=== PATIENT | female | born 1980 | race Caucasian/White ===

== ENCOUNTER 2021-10-13 14:00 | Inpatient (IN) | payer SELFPAY ==
[~2021-10-13] VITALS: Ht 149.9 cm; Wt 85.1 kg
--- NOTE | 2021-10-13 14:46 | RAD ---
CT HEAD AND C-SPINE WO, CT MAXILLOFACIAL WITHOUT CONTRAST dated 10/13/2021 2:04 PM Indication:Reason: syncope, fall / Spl. Instructions: / History: Comparison: No comparison is available. Technique: Helical noncontrast images were performed. Sagittal and coronal reconstructions were obtai arnav. One or more of the following individualized dose reduction techniques were utilized for this examinat ion: 1. Automated exposure control 2. Adjustment of the mA and/or kV according to patient size 3. Use of iterative reconstruction technique Findings: CT head: There is no apparent intracranial hemorrhage or abnormal extra-axial fluid collection. There seems to be greater than usual amount of low attenuation in the cerebral white matter for the patien t's age. This is nonspecific, but can be seen with chronic small vessel schema injury or hypertension . No other area of abnormal density is seen. The ventricles and basilar cisterns are normally positio arnav. Bone windows show no apparent fracture of the skull or abnormal mastoid opacification. CT FACIAL BONES: There is suggestion of a fracture involving the nasal bone near the tip and left meghna al arch. No other fracture is seen. The orbital floors appear intact. Nasal septum is deviated somewh at to the left. No fluid is seen in sinuses. There is some mucosal thickening in the ethmoid sinuses and left maxillary sinus. Periapical lucencies are seen in the axilla. The right zygoma was not entir rosey included on the study. It appeared normal on the head CT. CT cervical spine: Alignment is normal. There is no apparent loss of vertebral body height or prevert ebral soft tissue swelling. No fracture line is seen. Intervertebral disks are fairly well maintained . There is no apparent destructive process. Evaluation of the soft tissue components of the canal is limited without intrathecal contrast. 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 IMPRESSION: CT head: No acute abnormality is seen. There may be some underlying white matter disease. CT FACIAL BONES: Nasal fracture. No other apparent fracture. CT cervical spine: No acute abnormality. Electronically signed by: Darrick Luu Jr., MD (10/13/2021 2:44 PM) [id number]
--- NOTE | 2021-10-13 14:56 | PHYS DOC ---
Past History Past Medical History: CHF, Diabetes, Hypertension (ARMIDA FRAGOSO COMMUNITY AFFAIRS MANAGER) Adult General Chief Complaint Chief Complaint: SYNCOPE HPI HPI Patient is a 41-year-old female patient with history of diabetes type 2, hypertension, CHF, who presents to the ED today to be evaluated after having a syncope episode. Patient states she was walking to her bedroom when she fell face forward. Patient states she had loss of consciousness for unknown period of time though the mother was home who called 911 right away. She states she does not have any pain right now. (ARMIDA FRAGOSO COMMUNITY AFFAIRS MANAGER) Review of Systems Review of Systems Constitutional: Denies fever or chills [] Eyes: Denies change in visual acuity, redness, or eye pain [] HENT: Denies nasal congestion or sore throat [] Respiratory: Denies cough or shortness of breath [] Cardiovascular: No additional information not addressed in HPI [] GI: Denies abdominal pain, nausea, vomiting, bloody stools or diarrhea [] : Denies dysuria or hematuria [] Musculoskeletal: Denies back pain or joint pain [] Integument: Denies rash or skin lesions [] Neurologic: Reports syncope episode. Denies headache, focal weakness or sensory changes [] All other systems were reviewed and found to be within normal limits, except as documented in this note. (ARMIDA FRAGOSO COMMUNITY AFFAIRS MANAGER) Allergies Allergies Allergies Coded Allergies Type Severity Reaction Last Updated Verified No Known Drug Allergies 10/13/21 No (ARMIDA FRAGOSO APRN) Physical Exam Physical Exam Constitutional: Well developed, well nourished, no acute distress, non-toxic appearance. [] HENT: Normocephalic, bilateral external ears normal, oropharynx moist, no oral exudates, bilateral nasal cavities with dried blood. No active bleeding Eyes: PERRLA, EOMI, conjunctiva normal, no discharge. [] Neck: Patient is in a c-collar trying to remove the C collar on arrival. Normal range of motion, no tenderness, supple, no stridor. [] Cardiovascular:Heart rate regular rhythm, no murmur [] Lungs & Thorax: Bilateral breath sounds clear to auscultation [] Abdomen: Bowel sounds normal, soft, no tenderness, no masses, no pulsatile masses. [] Skin: Warm, dry, no erythema, no rash. [] Back: No tenderness, no CVA tenderness. [] Extremities: No tenderness, no cyanosis, no clubbing, ROM intact, +1 edema to bilateral lower extremities Neurologic: lethargic but able to wake up and answer orientation questions oriented X 3, normal motor function, normal sensory function, no focal deficits noted. Cranial nerves II through XII intact Psychologic: flat affect (ARMIDA FRAGOSO COMMUNITY AFFAIRS MANAGER) EKG EKG [address] Gonzales sinus rhythm HR 76 no STEMI[] (ARMIDA FRAGOSO COMMUNITY AFFAIRS MANAGER) Radiology/Procedures Radiology/Procedures []PROCEDURE: PORTABLE CHEST 1V XR CHEST 1V Clinical Indication: Reason: syncope, fall / Spl. Instructions: / History: Comparison: None. Findings: There is cardiomegaly. There is faint opacity that projects over the peripheral right midlung. Lungs are otherwise clear. There is no pneumothorax. No layering pleural effusion is appreciated. No acute bone abnormality. IMPRESSION: 1. Cardiomegaly. 2. Faint opacity of the peripheral right midlung. Finding could be airspace disease or fluid tracking along the fissure or could be due to overlying soft tissues. Electronically signed by: Thiago Arrieta MD (10/13/2021 3:32 PM) [id number] DICTATED AND SIGNED BY: THIAGO ARRIETA MD DATE: 10/13/21 1516 CC: EMERGENCY,DEPARTMENT; ARMIDA FRAGOSO ADRIANO; NON,STAFF ~MTH0 0 PROCEDURE: CT MAXILLOFACIAL WO CONTRAST CT HEAD AND C-SPINE WO, CT MAXILLOFACIAL WITHOUT CONTRAST dated 10/13/2021 2:04 PM Indication:Reason: syncope, fall / Spl. Instructions: / History: Comparison: No comparison is available. Technique: Helical noncontrast images were performed. Sagittal and coronal reconstructions were obtained. One or more of the following individualized dose reduction techniques were utilized for this examination: 1. Automated exposure control 2. Adjustment of the mA and/or kV according to patient size 3. Use of iterative reconstruction technique Findings: CT head: There is no apparent intracranial hemorrhage or abnormal extra-axial fluid collection. There seems to be greater than usual amount of low attenuation in the cerebral white matter for the patient's age. This is nonspecific, but can be seen with chronic small vessel schema injury or hypertension. No other area of abnormal density is seen. The ventricles and basilar cisterns are normally positioned. Bone windows show no apparent fracture of the skull or abnormal mastoid opacification. CT FACIAL BONES: There is suggestion of a fracture involving the nasal bone near the tip and left nasal arch. No other fracture is seen. The orbital floors appear intact. Nasal septum is deviated somewhat to the left. No fluid is seen in sinuses. There is some mucosal thickening in the ethmoid sinuses and left maxillary sinus. Periapical lucencies are seen in the axilla. The right zygoma was not entirely included on the study. It appeared normal on the head CT. CT cervical spine: Alignment is normal. There is no apparent loss of vertebral body height or prevertebral soft tissue swelling. No fracture line is seen. Intervertebral disks are fairly well maintained. There is no apparent destructive process. Evaluation of the soft tissue components of the canal is limited without intrathecal contrast. 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 IMPRESSION: CT head: No acute abnormality is seen. There may be some underlying white matter disease. CT FACIAL BONES: Nasal fracture. No other apparent fracture. CT cervical spine: No acute abnormality. Electronically signed by: Kristen Luu Jr., MD (10/13/2021 2:44 PM) [id number] DICTATED AND SIGNED BY: KRISTEN LUU Jr, MD DATE: 10/13/21 143 CC: EMERGENCY,DEPARTMENT; ARMIDA FRAGOSO APRN; NON,STAFF ~MTH0 0 (ARMIDA FRAGOSO APRN) Heart Score C/O Chest Pain: N/A Risk Factors: Risk Factors: DM, Current or recent (<one month) smoker, HTN, HLP, family history of CAD, obesity. Risk Scores: Risk Factors: DM, Current or recent (<one month) smoker, HTN, HLP, family history of CAD, obesity. (ARMIDA FRAGOSO APRN) Course & Med Decision Making Course & Med Decision Making Pertinent Labs and Imaging studies reviewed. (See chart for details) This is a 41-year-old female patient presented to the ED today to be evaluated after having a syncope episode and falling. She reports loss of consciousness. Vitals on arrival to the ED temperature 98.2, blood pressure 119/87, O2 sats 93% on room air. Respirations 16. CBC with a normal WBC, CMP with glucose of 149, anion gap is normal, CO2 is normal. Creatinine 1.3, BUN is normal. Troponin 61, patient has no chest pain, EKG is negative. BNP 4146 CT of the head is negative, CT of maxillofacial noted for nasal bone fracture. CT of the neck is negative. UDS positive for methamphetamine At some point during the stay patient was demanding to leave the ED AGAINST MEDICAL ADVICE. She is alert oriented x4 able to make her own decisions. She signed out her AMA paperwork, was walking out of the ED and fell. She was returned back to her room. I spoke to the sister, she states this patient is noncompliant and "a bitch". I ordered CT lumbar spine and thoracic spine, patient refused Patient again wanted to leave the ED AGAINST MEDICAL ADVICE, I spoke to patient at length and expressed my concern about her leaving AGAINST MEDICAL ADVICE especially with the fact that she fell in the ED. She accepted to stay. Spoke with Dr. Escobar who accepted her for admission. She was started on 80 mEq of Lasix IV in the ED. Considering her nasal bone fracture and her UA. She was given Rocephin (ARMIDA FRAGOSO APRN) Dragon Disclaimer Dragon Disclaimer This electronic medical record was generated, in whole or in part, using a voice recognition dictation system. (ARMIDA FRAGOSO APRN) Departure Departure: Impression: Primary Impression: Syncope Additional Impressions: CHF exacerbation Elevated troponin Nasal bone fracture UTI (urinary tract infection) Fall from standing Methamphetamine use Disposition: ADMITTED INPATIENT Condition: STABLE Referrals: NON,STAFF (PCP) Attending Signature Attending Signature I have participated in the care of this patient and I have reviewed and agree with all pertinent clinical information above including history, exam, and recommendations. (BENJA MORENO MD) Problem Qualifiers Primary Impression: Syncope Syncope type: unspecified Qualified Codes: R55 - Syncope and collapse Additional Impressions: CHF exacerbation Heart failure type: unspecified Qualified Codes: I50.9 - Heart failure, unspecified Nasal bone fracture Encounter type: initial encounter Fracture type: closed Qualified Codes: S02.2XXA - Fracture of nasal bones, initial encounter for closed fracture UTI (urinary tract infection) Urinary tract infection type: acute cystitis Hematuria presence: without hematuria Qualified Codes: N30.00 - Acute cystitis without hematuria Fall from standing Encounter type: initial encounter Qualified Codes: W19.XXXA - Unspecified fall, initial encounter ARMIDA FRAGOSO APRN Oct 13, 2021 14:56 BENJA MORENO MD Oct 14, 2021 18:18
[2021-10-13 15:02] LABS: BASO # 0.1 x10^3/uL (0.0-0.2); BASO % 1 % (0-3); EOS # 0.1 x10^3/uL (0.0-0.7); EOS % 1 % (0-3); HEMATOCRIT 45.6 % (36.0-47.0); HEMOGLOBIN 15.1 g/dL (12.0-15.5); LYMPH # 1.2 x10^3/uL (1.0-4.8); LYMPH % 14 % (24-48); MEAN CORPUSCULAR HEMOGLOBIN 28 pg (25-35); MEAN CORPUSCULAR HGB CONC 33 g/dL (31-37); MEAN CORPUSCULAR VOLUME 84 fL (79-100); MONO # 0.6 x10^3/uL (0.0-1.1); MONO % 8 % (0-9); NEUT # 6.2 x10^3uL (1.8-7.7); NEUT % 77 % (31-73); PLATELET COUNT 236 x10^3/uL (140-400); RED BLOOD COUNT 5.44 x10^6/uL (3.50-5.40); RED CELL DISTRIBUTION WIDTH 16.1 % (11.5-14.5); WHITE BLOOD COUNT 8.1 x10^3/uL (4.0-11.0)
[2021-10-13 15:14] LABS: CALCIUM 8.4 mg/dL (8.5-10.1); CREATININE 1.3 mg/dL (0.6-1.0); GFR 44.7
[2021-10-13 15:31] LABS: ALBUMIN 2.1 g/dL (3.4-5.0); ALBUMIN/GLOBULIN RATIO 0.5 (1.0-1.7); MAGNESIUM 2.2 mg/dL (1.8-2.4); TOTAL BILIRUBIN 0.6 mg/dL (0.2-1.0); TOTAL PROTEIN 6.1 g/dL (6.4-8.2)
--- NOTE | 2021-10-13 15:34 | RAD ---
XR CHEST 1V Clinical Indication: Reason: syncope, fall / Spl. Instructions: / History: Comparison: None. Findings: There is cardiomegaly. There is faint opacity that projects over the peripheral right midlung. Lungs are otherwise clear. There is no pneumothorax. No layering pleural effusion is appreciated. No acute bone abnormality. IMPRESSION: 1. Cardiomegaly. 2. Faint opacity of the peripheral right midlung. Finding could be airspace disease or fluid trackin g along the fissure or could be due to overlying soft tissues. Electronically signed by: Thiago Arrieta MD (10/13/2021 3:32 PM) [id number]
[2021-10-13 16:26] LABS: BARBITURATES NEG (NEG); BENZODIAZEPINES NEG (NEG); CANNABINOIDS NEG (NEG); COCAINE NEG (NEG); METHADONE NEG (NEG); OPIATES NEG (NEG); PHENCYCLIDINE NEG (NEG)
[2021-10-13 16:30] LABS: AMPHETAMINE/METHAMPHETAMINE POS (NEG)
[2021-10-13] MEDS ORDERED: FUROSEMIDE 40 MG/4 ML VIAL IVP ONE ×2 (16:30→19:15)
[2021-10-13 16:46] LABS: BILIRUBIN,URINE SMALL (NEG); CLARITY,URINE CLEAR; COLOR,URINE AMBER; GLUCOSE,URINE NEG (NEG); NITRITE,URINE NEG (NEG)
[2021-10-13 16:47] LABS: BACTERIA,URINE MOD /HPF (0-FEW); HYALINE CASTS, URINE FEW /HPF; RBC,URINE OCC /HPF (0-2); SQUAMOUS EPITHELIAL CELL,UR MANY /LPF
[2021-10-13] MEDS ORDERED: MORPHINE SULFATE 2 MG/ML DISP.SYRIN. IVP PRN (19:15)
[2021-10-13] MEDS ORDERED: ONDANSETRON PF 4 MG/2 ML VIAL. IVP PRN (19:15)
[2021-10-13] MEDS ORDERED: ACETAMINOPHEN 325 MG TABLET PO PRN (19:15)
[2021-10-13] MEDS ORDERED: IV NORMAL SALINE 50ML 50 ML ONE (19:44)
[2021-10-13] MEDS ORDERED: cefTRIAXone SODIUM 1 GM VIAL ONE (19:46)
[2021-10-13 20:40] VITALS: BP 136/96
[2021-10-14] MEDS ORDERED: Influenza vaccine per PROTOCOL. MC ONE
[2021-10-14 00:39] VITALS: BP 127/89
[2021-10-14 05:50] VITALS: BP 123/87
--- NOTE | 2021-10-14 07:07 | EKG ---
[address] [address] Test Date: 2021-10-13 Test Time: 15:56:58 Pat Name: FIDEL KEANE Department: Room: 109 A Gender: F [place] Laborer: EDIN : 1980 Requested By: ARMIDA FRAGOSO Order Number: [id number] Reading MD: Stan Waite MD Measurements Intervals [place] Rate: 76 P: 21 SC: 154 QRS: 152 QRSD: 100 T: 34 QT: 428 QTc: 486 Interpretive Statements SINUS RHYTHM [id number] Electronically Signed On 10-16-2021 13:22:36 RESIDENTIAL SALES EXECUTIVE by Stan Waite MD
[2021-10-14 07:14] LABS: CALCIUM 8.7 mg/dL (8.5-10.1); CREATININE 1.3 mg/dL (0.6-1.0); GFR 44.7; POTASSIUM 3.3 mmol/L (3.5-5.1)
[2021-10-14] MEDS ORDERED: FLU VACC QUAD 21-22 (6MOS+) PF 0.5 ML SYRINGE. VAX IM ONE (09:00)
[2021-10-14] MEDS: FUROSEMIDE 40 MG TABLET PO SCH (09:25)
[2021-10-14 10:24] VITALS: BP 146/104
--- NOTE | 2021-10-14 10:28 | HP ---
DATE OF SERVICE: 10/14/2021 ADMIT DATE: 10/13/2021 ATTENDING PHYSICIAN: Dr. Escobar. CHIEF COMPLAINT: Syncopal episode. HISTORY OF PRESENT ILLNESS: The patient is a 41-year-old female admitted through the ED with an episode of syncope at home. She states she was walking to the bathroom when she felt faint and she passed out. Short period of time, she came through. She called 911. There are no cardiac arrhythmias. The patient had extensive workup. There are no arrhythmias; however, her cardiac enzymes were positive. The new sensitivity troponins were drawn. The first set was elevated at 61, repeat set 6 hours later was up to 95 and the third one last night was 136. Electrolytes were adequate. Hemoglobin was stable at 15.1 grams. She denied any chest pain. There is no previous history of heart disease, but she does have diabetes as well as a cardiac history, taking medication she does not know. She does have hypertension. She also abuses methamphetamine. There is a remote history of heart failure. She is admitted then with syncopal episode and positive cardiac enzyme. Whether or not this is true ischemia or stress demand ischemia, remains to be seen. The patient is asymptomatic at this time. PAST MEDICAL HISTORY: Significant for the drug use. She has had diabetes, hypertension, remotely congestive heart failure, treated at [facility]. I do not have details of those workup from several years ago. ALLERGIES: She has no known drug allergies. SOCIAL HISTORY: She is a smoker, a pack of cigarettes daily. No alcohol use. FAMILY HISTORY: Noncontributory. REVIEW OF SYSTEMS: Significant for the syncopal episode. No nausea, vomiting or COVID exposure. PHYSICAL EXAMINATION: GENERAL: When I saw her, this is a most unpleasant female in terms of her added to. VITAL SIGNS: Her initial vital signs showed a blood pressure of 127/89. She is afebrile, pulse 91 and regular, oxygen saturation 91% on room air. HEENT: Head is without trauma. Pupils are reactive. Sclerae nonicteric. Oropharynx clear. NECK: Supple. LUNGS: Clear. CARDIOVASCULAR: Showed regular heart tones. ABDOMEN: Soft. EXTREMITIES: Without edema. NEUROLOGIC: Focally intact. Speech is normal. ASSESSMENT: 1. A 41-year-old female with syncopal episode, etiology to be determined. 2. Substance abuse. 3. Positive cardiac enzymes and the history of heart disease in the past. PLAN: 1. Admit to the inpatient or telemetry. 2. Formal Cardiology consultation. 3. Empiric beta blockade. 4. Nicotine patch. 5. Aspirin. 6. Further recommendations and workup pending Cardiology evaluation. REBECCA DR: Michelle TID: [id number]
[2021-10-14] MEDS: NICOTINE 21MG PATCH. TD SCH (10:34)
[2021-10-14] MEDS: ASPIRIN 325 MG TABLET PO SCH (10:34)
[2021-10-14] MEDS: METOPROLOL TART IMMED RELEASE 50 MG TABLET PO SCH (10:34)
[2021-10-14 15:14] VITALS: BP 135/93
[2021-10-14 19:38] VITALS: BP 157/117
[2021-10-14 23:35] VITALS: BP 155/118
[2021-10-15 06:27] VITALS: BP 163/126
[2021-10-15] MEDS: ASPIRIN 325 MG TABLET PO SCH (08:12)
[2021-10-15] MEDS: FUROSEMIDE 40 MG TABLET PO SCH (08:12)
[2021-10-15] MEDS: NICOTINE 21MG PATCH. TD SCH (08:12)
[2021-10-15] MEDS: METOPROLOL TART IMMED RELEASE 50 MG TABLET PO SCH (08:12)
[2021-10-15] MEDS ORDERED: MAGNESIUM SULFATE 1GM 100 ML IV ONE (08:15)
[2021-10-15] MEDS ORDERED: POTASSIUM CHLORIDE 20 MEQ TABLET.ER. PO SCH (09:00)
--- NOTE | 2021-10-15 09:51 | PN ---
DATE: 10/15/2021 ATTENDING PHYSICIAN: Dr. Escobar. SUBJECTIVE: No new complaints. She wants to go home. OBJECTIVE FINDINGS: VITAL SIGNS: Blood pressure is 163/126, pulse is 97 and regular. She is afebrile. Oxygen sats were 94% on room air. HEENT: Head is without trauma. Pupils are reactive. Sclerae nonicteric. Oropharynx clear. NECK: Supple, no bruits. LUNGS: Clear. CARDIOVASCULAR: Regular heart tones. ABDOMEN: Soft. EXTREMITIES: Without edema. LABORATORY STUDIES: Her respective troponin levels are 61, 95, and 135 respectively. ASSESSMENT: 1. A 41-year-old female with syncopal episode, resolved. 2. Elevation of troponin. If this is a type 1 stress demand ischemia, remains to be seen. She has enough risk factors. 3. Labile hypertension. 4. Polysubstance abuse. PLAN: 1. Continue telemetry monitoring. 2. Beta blockers and aspirin. 3. Formal Cardiology consultation. If they feel she is safe for the discharge to have further workup as outpatient, I will be happy to release her. AAMIR DR: GENTRY/marcin TID: [id number]
[2021-10-15 11:01] VITALS: BP 152/110
--- NOTE | 2021-10-15 12:21 | DS ---
DATE OF DISCHARGE: 10/15/2021 ATTENDING PHYSICIAN: Dr. Escobar. FINAL DISCHARGE DIAGNOSES: 1. Syncopal episode, etiology to be determined. 2. Polysubstance abuse. 3. Stress demand ischemia. Positive cardiac enzymes. 4. Nasal bone fractures. HISTORY OF PRESENT ILLNESS: The patient is a 41-year-old female who unfortunately engages in recreational drug use of methamphetamine. She had a syncopal episode at home. No seizure activity. She was thoroughly evaluated in the ED. PHYSICAL EXAMINATION: Please see the dictated note. PERTINENT LABORATORY AND X-RAY STUDIES: On the database. No stroke evidence on CT. She did have 3 cardiac enzymes, troponin levels that were progressively elevated. She had no symptoms. HOSPITAL COURSE: She was started on a beta keyon and aspirin. Formal Cardiology consultation was obtained. Dr. Maradiaga saw the patient in consultation. He thought it was safe for her to go home and arrange further workup as an outpatient, including event monitor and outpatient stress test. The patient does not live in the area and does not have access to medical care. Whether or not she shows up remains to be seen. In any event, on the second hospital day, she was discharged home with explicit instructions and followup care. Strong encouragement to avoid further methamphetamine use. Whether or not she will quit her habits remains to be seen. In any event, she was discharged from our service in stable condition with explicit drug and followup care. GENTRY/CHEPE PENDLETON: GENTRY/marcin TID: [id number]
--- NOTE | 2021-10-15 14:44 | PDOC2 ---
CONSULT DOS: DATE: 10/15/21 TIME: 14:39 Reason for Consult: Syncope Referring Physician: Dr. Escobar Chief Complaint Syncope Source: Chart review, Patient Problem List Problems Medical Problems: (1) CHF exacerbation Status: Acute (2) Elevated troponin Status: Acute (3) Fall from standing Status: Acute (4) Methamphetamine use Status: Acute (5) Nasal bone fracture Status: Acute (6) Syncope Status: Acute (7) UTI (urinary tract infection) Status: Acute History of Present Illness 41-year-old female presented after she had an episode of syncope when she was walking to the bathroom. She denied any chest pain, orthopnea/PND or palpitations. She denied any prior history of syncope or near syncope. She stated that she was diagnosed with congestive heart failure several years ago per PCP but did not have any cardiology follow-up. Past Medical History Hypertension Congestive heart failure Diabetes mellitus type 2 Family History Hypertension Social History Patient smokes 1 pack of cigarettes daily and denied any alcohol abuse. Current Medications Current Medications Furosemide (Lasix) 40 mg 1X ONCE IVP Last administered on 10/13/21at 16:30; Start 10/13/21 at 16:30; Stop 10/13/21 at 16:31; Status DC Furosemide (Lasix) 40 mg 1X ONCE IVP Last administered on 10/13/21at 19:15; Start 10/13/21 at 19:15; Stop 10/13/21 at 19:16; Status DC Ondansetron HCl (Zofran) 4 mg PRN Q4HRS PRN IVP NAUSEA/VOMITING; Start 10/13/21 at 19:15; Stop 10/14/21 at 19:14; Status DC Morphine Sulfate (Morphine 2mg Syringe) 2 mg PRN Q2HR PRN IVP PAIN; Start 10/13/21 at 19:15; Stop 10/14/21 at 19:14; Status DC Acetaminophen (Tylenol) 650 mg PRN Q4HRS PRN PO FEVER > 100.3'F; Start 10/13/21 at 19:15; Stop 10/14/21 at 19:14; Status DC Furosemide (Lasix) 40 mg DAILY PO Last administered on 10/15/21at 08:12; Start 10/14/21 at 09:00; Stop 10/15/21 at 12:45; Status DC Ceftriaxone Sodium 1 gm/ Sodium Chloride 50 ml @ 100 mls/hr 1X ONCE IV Last administered on 10/13/21at 19:47; Start 10/13/21 at 19:45; Stop 10/13/21 at 20:14; Status DC Sodium Chloride 50 ml @ As Directed STK-MED ONCE .ROUTE ; Start 10/13/21 at 19:44; Stop 10/13/21 at 19:45; Status DC Ceftriaxone Sodium (Rocephin) 1 gm STK-MED ONCE .ROUTE ; Start 10/13/21 at 19:46; Stop 10/13/21 at 19:46; Status DC Info (FLU VACCINE per PROTOCOL) 1 ea 1X ONCE MC ; Start 10/14/21 at 00:00; Stop 10/14/21 at 00:01; Status UNV Influenza Virus Vaccine Quadrival (Flulaval Quad [id number] Syringe) 0.5 ml ONCE ONCE VAX IM Last administered on 10/14/21at 09:25; Start 10/14/21 at 09:00; Stop 10/14/21 at 09:01; Status DC Metoprolol Tartrate (Lopressor) 50 mg DAILY PO Last administered on 10/15/21at 08:12; Start 10/14/21 at 10:30; Stop 10/15/21 at 12:45; Status DC Aspirin (Denzel Aspirin) 325 mg DAILYWBKFT PO Last administered on 10/15/21at 08:12; Start 10/14/21 at 10:00; Stop 10/15/21 at 12:45; Status DC Nicotine (Nicoderm Cq 21mg Patch) 1 patch DAILY TD Last administered on 10/15/21at 08:12; Start 10/14/21 at 10:30; Stop 10/15/21 at 12:45; Status DC Potassium Chloride (Klor-Con) 20 meq DAILY PO Last administered on 10/15/21at 08:33; Start 10/15/21 at 09:00; Stop 10/15/21 at 12:45; Status DC Magnesium Sulfate 100 ml @ 100 mls/hr 1X ONCE IV Last administered on 10/15/21at 08:34; Start 10/15/21 at 08:15; Stop 10/15/21 at 09:14; Status DC Active Scripts Active No Active Prescriptions or Reported Medications Allergies: Coded Allergies: No Known Drug Allergies (Unverified , 10/13/21) PSYCHOLOGICAL ROS: No: Hallucinations Eyes: No: Loss of vision HEENT: No: Epistaxis Respiratory: No: Hemoptysis, Shortness of breath Cardiovascular: No: Chest Pain Gastrointestinal: No: Vomiting, Diarrhea Neurological: YES: Dizziness, Other (Syncope); No: Confusion General: Alert, Oriented X3 HEENT: Atraumatic Lungs: Clear to auscultation Heart: Regular rate Abdomen: Soft Extremities: No edema Neuro: Normal speech Psych/Mental Status: Mood NL VITALS Vital Signs Date Time Temp Pulse Resp B/P (MAP) Pulse Ox O2 Delivery O2 Flow Rate FiO2 10/15/21 11:01 98.5 80 20 152/110 (124) 94 Room Air Labs Laboratory Tests Test 10/13/21 14:52 10/13/21 15:41 10/13/21 16:17 10/13/21 19:06 White Blood Count 8.1 x10^3/uL (4.0-11.0) Red Blood Count 5.44 x10^6/uL (3.50-5.40) Hemoglobin 15.1 g/dL (12.0-15.5) Hematocrit 45.6 % (36.0-47.0) Mean Corpuscular Volume 84 fL (79-100) Mean Corpuscular Hemoglobin 28 pg (25-35) Mean Corpuscular Hemoglobin Concent 33 g/dL (31-37) Red Cell Distribution Width 16.1 % (11.5-14.5) Platelet Count 236 x10^3/uL (140-400) Neutrophils (%) (Auto) 77 % (31-73) Lymphocytes (%) (Auto) 14 % (24-48) Monocytes (%) (Auto) 8 % (0-9) Eosinophils (%) (Auto) 1 % (0-3) Basophils (%) (Auto) 1 % (0-3) Neutrophils # (Auto) 6.2 x10^3uL (1.8-7.7) Lymphocytes # (Auto) 1.2 x10^3/uL (1.0-4.8) Monocytes # (Auto) 0.6 x10^3/uL (0.0-1.1) Eosinophils # (Auto) 0.1 x10^3/uL (0.0-0.7) Basophils # (Auto) 0.1 x10^3/uL (0.0-0.2) Prothrombin Time 10.8 SEC (9.4-11.4) Prothromb Time International Ratio 1.0 (0.9-1.1) Activated Partial Thromboplast Time 23 SEC (23-33) Sodium Level 138 mmol/L (136-145) Potassium Level 4.0 mmol/L (3.5-5.1) Chloride Level 105 mmol/L (98-107) Carbon Dioxide Level 23 mmol/L (21-32) Anion Gap 10 (6-14) Blood Urea Nitrogen 20 mg/dL (7-20) Creatinine 1.3 mg/dL (0.6-1.0) Estimated GFR (Cockcroft-Gault) 44.7 BUN/Creatinine Ratio 15 (6-20) Glucose Level 149 mg/dL (70-99) Calcium Level 8.4 mg/dL (8.5-10.1) Magnesium Level 2.2 mg/dL (1.8-2.4) Total Bilirubin 0.6 mg/dL (0.2-1.0) Aspartate Amino Transf (AST/SGOT) 39 U/L (15-37) Alanine Aminotransferase (ALT/SGPT) 29 U/L (14-59) Alkaline Phosphatase 221 U/L (46-116) Creatine Kinase 91 U/L (26-192) Creatine Kinase MB (Mass) 3.7 ng/mL (0.0-3.6) Creatine Kinase MB Relative Index 4.1 % (0-4) Troponin I High Sensitivity 61 ng/L (4-50) 95 ng/L (4-50) ZF-Ejp-[id number]-Type Natriuretic Peptide 4146 pg/mL (0-124) Total Protein 6.1 g/dL (6.4-8.2) Albumin 2.1 g/dL (3.4-5.0) Albumin/Globulin Ratio 0.5 (1.0-1.7) Thyroid Stimulating Hormone (TSH) 2.450 uIU/mL (0.358-3.740) Urine Collection Type U cath Urine Color Mariaa Urine Clarity Clear Urine pH 6.0 Urine Specific Hedley >=1.030 Urine Protein >100 mg/dl (NEG-TRACE) Urine Glucose (UA) Neg mg/dL (NEG) Urine Ketones (Stick) Trace mg/dL (NEG) Urine Blood Trace (NEG) Urine Nitrite Neg (NEG) Urine Bilirubin Small (NEG) Urine Urobilinogen Dipstick 1.0 mg/dL (0.2 mg/dL) Urine Leukocyte Esterase Neg (NEG) Urine RBC Occ /HPF (0-2) Urine WBC 11-20 /HPF (0-4) Urine Squamous Epithelial Cells Many /LPF Urine Bacteria Mod /HPF (0-FEW) Urine Cellular Casts Occ /HPF Urine Hyaline Casts Few /HPF Urine Opiates Screen Neg (NEG) Urine Methadone Screen Neg (NEG) Urine Barbiturates Neg (NEG) Urine Phencyclidine Screen Neg (NEG) Urine Amphetamine/Methamphetamine Pos (NEG) Urine Benzodiazepines Screen Neg (NEG) Urine Cocaine Screen Neg (NEG) Urine Cannabinoids Screen Neg (NEG) Urine Ethyl Alcohol Neg (NEG) Ethyl Alcohol Level < 10 mg/dL (0-10) Test 10/13/21 19:50 10/13/21 21:00 10/14/21 06:00 Coronavirus (COVID-19)(PCR) Not detected (NOT DETECTD) SARS-CoV-2 Antigen (Rapid) Negative (NEGATIVE) Troponin I High Sensitivity 135 ng/L (4-50) Sodium Level 141 mmol/L (136-145) Potassium Level 3.3 mmol/L (3.5-5.1) Chloride Level 106 mmol/L (98-107) Carbon Dioxide Level 22 mmol/L (21-32) Anion Gap 13 (6-14) Blood Urea Nitrogen 21 mg/dL (7-20) Creatinine 1.3 mg/dL (0.6-1.0) Estimated GFR (Cockcroft-Gault) 44.7 Glucose Level 112 mg/dL (70-99) Calcium Level 8.7 mg/dL (8.5-10.1) Assessment/Plan 1. Syncope: Most probably vasovagal in etiology. EKG showed sinus rhythm with incomplete right bundle branch block. Telemetry did not show any significant arrhythmias. Plan for 2D echo and event monitor recording as an outpatient. 2. Slight troponin elevation, most probably demand ischemia. She is chest pain-free. Plan for ischemic evaluation with stress test as an outpatient. 3. Hypertension: Better controlled since admission 4. Tobacco abuse: Advised smoking cessation Thank you for your consultation CHRIS WISE MD Oct 15, 2021 14:44
== END 2021-10-15 12:20 | disposition home or self-care (01) | DRG 155 ==
LOC: ER 14:00 → 1 SOUTH 19:03
PROVIDERS: ADMIT Hospitalist; ATTEND Hospitalist
DX: S02.2XXA Fracture of nasal bones, initial encounter for closed fracture (principal); I24.8 Other forms of acute ischemic heart disease; N39.0 Urinary tract infection, site not specified; R55 Syncope and collapse; E11.9 Type 2 diabetes mellitus without complications; F15.10 Other stimulant abuse, uncomplicated; F17.200 Nicotine dependence, unspecified, uncomplicated; I11.0 Hypertensive heart disease with heart failure; I45.10 Unspecified right bundle-branch block; I50.9 Heart failure, unspecified; W18.30XA Fall on same level, unspecified, initial encounter; Z82.49 Family history of ischemic heart disease and other diseases of the circulatory system; Z20.822 Contact with and (suspected) exposure to COVID-19
CPT/HCPCS: 36415; 70450; 70486; 71045; 72125; 80048; 80053; 80307; 81001; 82553; 83735; 83880; 84443; 84484; 85025; 85610; 85730; 87086; 87426; 90471; 90686; 93005; 96374; G0480; J0696; J1940; J3475; U0003; 99285-25